=== PATIENT | female | born 1970 | race Caucasian/White ===

== ENCOUNTER → 2016-09-24 | Outpatient (CLI) | payer BC | LOC: M RAD 11:40 | PROVIDERS: ATTEND Physician Assistant | DX: N92.0 Excessive and frequent menstruation with regular cycle (principal) ==

== ENCOUNTER 2017-01-17 08:13 | Day surgery (SDC) | payer BC ==
[~2017-01-17] VITALS: Ht 160 cm; Wt 79.4 kg
[~2017-01-17 08:13] MED LIST: IRON50TA PO; METO12TA PO; MULT1CHW39 PO
[2017-01-17] MEDS ORDERED: LR 1,000 ML IV SCH ×3 (08:30→14:00)
[2017-01-17] MEDS ORDERED: LR 1,000 ML IV ONE (08:30)
[2017-01-17] MEDS ORDERED: LIDOCAINE 2% INJ 100 MG/5 ML SDV (FOR ANES.) As Ordered ONE (08:37)
[2017-01-17] MEDS ORDERED: PROPOFOL 200 MG/20 ML VIAL As Ordered ONE (08:37)
[2017-01-17] MEDS ORDERED: ROCURONIUM BROMIDE 50 MG/5 ML VIAL As Ordered ONE ×2 (08:37→11:58)
[2017-01-17] MEDS ORDERED: MIDAZOLAM INJ 2 MG/2 ML VIAL (J2250) As Ordered ONE (08:37)
[2017-01-17] MEDS ORDERED: fentaNYL 100 MCG/2 ML INJECTION (J3010) As Ordered ONE ×2 (08:37→11:57)
[2017-01-17] MEDS ORDERED: ONDANSETRON 4MG/2ML VIAL (J2405) As Ordered ONE ×2 (08:37→13:25)
[2017-01-17 08:57] LABS: CONTROL LINE UCG INT CTR LINE PRESENT
[2017-01-17 09:01] LABS: MEAN CORPUSCULAR HEMOGLOBIN 29.8 pg (27.0-33.0); MEAN CORPUSCULAR HGB CONC 33.9 g/dl (32.0-36.5); MEAN CORPUSCULAR VOLUME 87.9 fl (80.0-96.0); WHITE BLOOD COUNT 5.6 K/mm3 (4.0-10.0)
[2017-01-17] MEDS ORDERED: OXYC1TAB23 PO (10:59)
[2017-01-17] MEDS ORDERED: METHYLENE BLUE 0.5% (5MG/ML) 10 ML AMP (PROVAYBLUE)(Q9968 PER 1MG) As Ordered ONE (11:07)
[2017-01-17] MEDS ORDERED: BUPIVACAINE HCL 0.25% 30 ML VIAL As Ordered ONE (11:08)
[2017-01-17] MEDS ORDERED: dexameTHASONE 4 MG/ML 1ML VIAL (J1100) As Ordered ONE (11:09)
[2017-01-17] MEDS ORDERED: SCOPOLAMINE 1.5 MG TRANSDERMAL As Ordered ONE (11:24)
[2017-01-17] MEDS ORDERED: SCOPOLAMINE 1.5 MG TRANSDERMAL TOP ONE (12:00)
[2017-01-17] MEDS ORDERED: ePHEDrine SULFATE 25 MG/5 ML(5MG/ML) SYRINGE As Ordered ONE (13:03)
[2017-01-17] MEDS ORDERED: HYDROmorphone HCL 2 MG/ML 1ML VIAL (J1170) As Ordered ONE (13:24)
[2017-01-17] MEDS ORDERED: NEOSTIGMINE 1MG/ML 5 ML SYRINGE (J2710) As Ordered ONE (13:29)
[2017-01-17] MEDS ORDERED: GLYCOPYRROLATE INJ 0.2 MG/ML 2 ML VIAL As Ordered ONE (13:29)
[2017-01-17] MEDS ORDERED: METOCLOPRAMIDE INJ 10MG/2ML VIAL (J2765) As Ordered ONE (13:51)
[2017-01-17] MEDS ORDERED: diphenhydrAMINE INJ 50MG/ML VIAL (J1200) IV PRN (14:00)
[2017-01-17] MEDS ORDERED: fentaNYL 100 MCG/2 ML INJECTION (J3010) IV PRN (14:00)
[2017-01-17] MEDS ORDERED: HYDROmorphone HCL 1 MG/ML SYRINGE (J1170) IV PRN (14:00)
[2017-01-17] MEDS ORDERED: ONDANSETRON 4MG/2ML VIAL (J2405) IV PRN ×2 (14:00)
[2017-01-17] MEDS ORDERED: METOCLOPRAMIDE INJ 10MG/2ML VIAL (J2765) IV PRN (14:00)
[2017-01-17] MEDS ORDERED: PROMETHAZINE INJ 25 MG/ML VIAL (J2550) IV PRN (14:00)
[2017-01-17] MEDS ORDERED: MORPHINE 4 MG/ML 1ML SYRINGE IV PRN (14:00)
[2017-01-17] MEDS ORDERED: PERCOCET 5MG/325MG TAB PO PRN ×3 (14:00)
[2017-01-17] MEDS ORDERED: KETOROLAC 30 MG/ML VIAL (J1885) IV PRN (14:15)
[2017-01-17 14:40] VITALS: BP 108/55
[2017-01-17 15:15] VITALS: BP 115/65
[2017-01-17 16:00] VITALS: BP 128/82
[2017-01-17 17:00] VITALS: BP 128/74
[2017-01-17 18:00] VITALS: BP_SYST 141; BP_SYST 171; BP_DIAS 84
[2017-01-17 19:00] VITALS: BP 132/75
[2017-01-17] MEDS ORDERED: DOCUSATE SODIUM 100 MG CAP PO SCH (21:00)
--- NOTE | 2017-01-17 21:43 | RO ---
DATE OF PROCEDURE: 01/17/2017 PREPROCEDURE DIAGNOSIS: Menorrhagia. POSTPROCEDURE DIAGNOSIS: Menorrhagia. PROCEDURE: Robotic-assisted laparoscopic hysterectomy, cystoscopy, excision of vulvar cyst and vulvar skin tag. SURGEON: Dr. Vega Peterson SERVICE VEHICLE OPERATOR: Anny Urias NP ANESTHESIA: General endotracheal. ESTIMATED BLOOD LOSS: 250 mL. FINDINGS: Mildly enlarged uterus. Normal fallopian tubes and ovaries. There was a 1 cm cyst in the inner right labia minora and a 5 mm skin tag on the right labia majora. DESCRIPTION OF PROCEDURE: The patient was taken to the operating room where general endotracheal anesthesia was induced. She was prepped and draped in a sterile fashion in the dorsal lithotomy position. A Escobar catheter was placed, a VCare uterine manipulator was placed. A periumbilical incision was made with a scalpel. A Veress needle was placed through this incision. A pneumoperitoneum was created. Veress needle was removed. An 11 mm trocar was placed through this incision using Visiport. Three 8 mm suprapubic ports were placed under direct visualization. Patient was placed in Trendelenburg position. The da Christian surgical robot was docked in the ports. Using monopolar Endo Luann and a PK dissector, the utero-ovarian ligaments, fallopian tube and round ligament complexes were coagulated and incised. The anterior and posterior leaves of the broad ligament were , a bladder flap was created. Uterine vessels were coagulated. A colpotomy was created using the monopolar Endo Luann and extended to the level of the VCare cup in the upper vagina. The specimen containing the uterus and cervix was removed. The vagina was closed with #1 V-Loc suture in a running fashion, the pelvis was irrigated. Cystoscopy was performed using a 70-degree cystoscope. The patient received methylene blue dye intravenously. Bilateral ureteral jets were identified. There was no evidence of injury to the bladder. The Escobar catheter was replaced. Anny Urias NP, assisted with the entire surgery from beginning to end. She assisted with insertion of the ports and positioning of the patient. She was integral with manipulation of the uterus throughout the entire procedure. She assisted in removal of the specimen as well as closure of the ports. Attention was turned to the vagina. A vaginal cyst was excised with a scalpel and closed with interrupted suture of #4-0 Vicryl. The skin tag was grasped with pickups and excised with a scalpel and closed with a single interrupted suture of #4-0 Vicryl. Sponge, needle and instrument counts were correct.
== END 2017-01-17 20:30 | disposition home or self-care (01) ==
LOC: M SDC 08:13 → M PED 14:08 → M SDC 20:30
PROVIDERS: ATTEND Specialist
DX: N92.0 Excessive and frequent menstruation with regular cycle (principal); D25.9 Leiomyoma of uterus, unspecified; N90.7 Vulvar cyst; N90.89 Other specified noninflammatory disorders of vulva and perineum; D64.9 Anemia, unspecified; I10 Essential (primary) hypertension; F41.9 Anxiety disorder, unspecified; F32.9 Major depressive disorder, single episode, unspecified
CPT/HCPCS: 36415; 57135; 58570; 84703; 85027; 88304; 88307; 96374; J0690; J1100; J1170; J2250; J2405; J2710; J2765; J3010; Q9968

== ENCOUNTER → 2018-03-20 | Outpatient (REF) ==
[2018-03-21 10:16] LABS: RUBEOLA IgG ANTIBODY 28.6 AU/mL (Immune >29.9)
== END ==
LOC: M LAB 09:39
DX: Z00.00 Encounter for general adult medical examination without abnormal findings (principal)

== ENCOUNTER → 2018-04-04 | Outpatient (CLI) | payer BC | LOC: M RAD 15:36 | DX: E04.1 Nontoxic single thyroid nodule (principal) | CPT/HCPCS: 76536 ==

== ENCOUNTER → 2018-04-21 | Outpatient (CLI) | payer BC ==
[2018-04-21 08:39] LABS: THYROXINE (T4) 8.9 UG/DL (4.5-12.0)
[2018-04-21 08:39] LABS: FREE T3 2.9 PG/ML (2.2-4.0)
[2018-04-21 09:00] LABS: THYROGLOBULIN ANTIBODY 23.5 U/ML (<60.0)
== END ==
LOC: M LAB 06:53
DX: R22.1 Localized swelling, mass and lump, neck (principal)
CPT/HCPCS: 84443

== ENCOUNTER 2020-02-19 11:13 | Emergency (ER) | payer BC, OTHER ==
[~2020-02-19] VITALS: Ht 160 cm; Wt 83.0 kg
[~2020-02-19 11:13] MED LIST changes: -METO12TA PO; +METO1TAB87 PO; -MULT1CHW39 PO; +MULT200T7 PO; +OXYC1TAB23 PO
[2020-02-19] MEDS ORDERED: METR0.7534 (11:22)
[2020-02-19] MEDS ORDERED: BETA115CR (11:22)
[2020-02-19] MEDS ORDERED: DOXY100T (11:22)
[2020-02-19] MEDS ORDERED: methylPREDNISolone 125MG 2ML VIAL IV ONE (12:15)
[2020-02-19 12:39] LABS: APPEARANCE, URINE CLEAR (CLEAR); BACTERIA, URINE AUTO NEGATIVE (NEGATIVE); BILIRUBIN, URINE AUTO NEGATIVE (NEGATIVE); BLOOD, URINE BLOOD NEGATIVE (NEGATIVE); COLOR, URINE STRAW (YELLOW); GLUCOSE, URINE (UA) AUTO NEGATIVE (NEGATIVE); KETONE, URINE AUTO NEGATIVE (NEGATIVE); LEUKOCYTE ESTERASE, URINE AUTO NEGATIVE (NEGATIVE); NITRITE, URINE AUTO NEGATIVE (NEGATIVE); PROTEIN, URINE AUTO NEGATIVE (NEGATIVE); RBC, URINE AUTO 1 /HPF (0-3); SPECIFIC GRAVITY URINE AUTO 1.003 (1.002-1.035); SQUAMOUS EPITHELIAL CELL UR AU 0 /HPF (0-6); UROBILINOGEN, URINE AUTO 0.2 mg/dL (0.0-2.0); WBC, URINE AUTO 1 /HPF (0-3)
[2020-02-19 12:43] LABS: BASO % 0.4 % (0.0-1.0); EOS # 0.1 10^3/uL (0.0-0.5); EOS % 0.6 % (0.0-3.0); HEMATOCRIT 47.7 % (36.0-47.0); HEMOGLOBIN 15.8 g/dl (12.0-15.5); LYMPH # 2.5 10^3/uL (1.5-5.0); MEAN CORPUSCULAR HEMOGLOBIN 29.1 pg (27.0-33.0); MEAN CORPUSCULAR HGB CONC 33.1 g/dl (32.0-36.5); MEAN CORPUSCULAR VOLUME 87.8 fl (80.0-96.0); MONO # 0.7 10^3/uL (0.0-0.8); NEUTROPHILS # 4.5 10^3/uL (1.5-8.5); NEUTROPHILS % 57.7 % (36.0-66.0); PLATELET COUNT, AUTOMATED 262 10^3/uL (150-450); RED BLOOD COUNT 5.43 10^6/uL (4.00-5.40); WHITE BLOOD COUNT 7.8 10^3/uL (4.0-10.0)
[2020-02-19 13:10] LABS: BLOOD UREA NITROGEN 7 MG/DL (7-18); C REACTIVE PROTEIN QUANTITATIV 0.38 MG/DL (0.00-0.30); CARBON DIOXIDE LEVEL 28 MEQ/L (21-32); CHLORIDE LEVEL 105 MEQ/L (98-107); CREATININE FOR GFR 0.59 MG/DL (0.55-1.30); GLOMERULAR FILTRATION RATE > 60.0 (>58); GLUCOSE, FASTING 88 MG/DL (70-100); POTASSIUM SERUM 3.3 MEQ/L (3.5-5.1); SODIUM LEVEL 138 MEQ/L (136-145)
[2020-02-19 13:31] LABS: ERYTHROCYTE SEDIMENTATION RATE 2 mm/hr (0-20)
[2020-02-19] MEDS ORDERED: PRED20TA PO (13:45)
[2020-02-19] MEDS ORDERED: POTASSIUM CHLORIDE 10 MEQ SR TABLET PO ONE (13:45)
[2020-02-19 13:52] VITALS: BP 169/98
== END 2020-02-19 13:55 | disposition home or self-care (01) ==
LOC: M ED 11:13
DX: L29.9 Pruritus, unspecified (principal); E87.6 Hypokalemia; I10 Essential (primary) hypertension; F33.9 Major depressive disorder, recurrent, unspecified; F41.9 Anxiety disorder, unspecified; Z79.899 Other long term (current) drug therapy
CPT/HCPCS: 80048; 81001; 85025; 85652; 86140; 87880; 96374; 99284; J2930

== ENCOUNTER → 2020-03-10 | Outpatient (CLI) | payer BC ==
[~2020-03-10] MED LIST changes: +BETA115CR; +DOXY100T; +METR0.7534; +PRED20TA PO
[2020-03-11 20:07] LABS: ANA (HEP2) Negative (.)
== END ==
LOC: M PLALAB 09:35
PROVIDERS: ATTEND Physician Assistant
DX: L71.9 Rosacea, unspecified (principal)

== ENCOUNTER → 2020-04-08 | Outpatient (REF) | payer BC | LOC: M LAB REF 08:23 | PROVIDERS: ATTEND Physician Assistant | DX: D03.62 Melanoma in situ of left upper limb, including shoulder (principal) ==

== ENCOUNTER → 2020-05-06 | Outpatient (REF) | payer BC | LOC: M LAB REF 19:19 | PROVIDERS: ATTEND Dermatology | DX: C43.62 Malignant melanoma of left upper limb, including shoulder (principal) ==

== ENCOUNTER → 2020-05-20 | Outpatient (REF) | payer BC | LOC: M LAB REF 07:37 | PROVIDERS: ATTEND Physician Assistant | DX: L57.0 Actinic keratosis (principal) ==

== ENCOUNTER → 2020-07-21 | Outpatient (CLI) | payer BC | LOC: M LABSMTC 11:03 | PROVIDERS: ATTEND Pediatrics | DX: Z20.828 Contact with and (suspected) exposure to other viral communicable diseases (principal) ==

== ENCOUNTER → 2020-08-04 | Outpatient (CLI) | payer SELFPAY | LOC: M LABSMTC 11:55 | PROVIDERS: ATTEND Pediatrics | DX: Z20.828 Contact with and (suspected) exposure to other viral communicable diseases (principal) ==

== ENCOUNTER → 2020-08-07 | Outpatient (CLI) | payer BC ==
--- NOTE | 2020-08-07 11:32 | REP ---
INDICATION: PAIN IN LEFT TOE COMPARISON: None. TECHNIQUE: AP, lateral, bilateral oblique views left 1st toe. FINDINGS: Mild degenerative changes include periarticular sclerosis with very subtle marginal spurring and joint space narrowing at the metatarsophalangeal joint. No obvious acute fracture or dislocation. 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 No definite acute fracture or dislocation. <Electronically signed by Raghav Jackson > 08/07/20 0937
== END ==
LOC: M ADAMS 10:18
PROVIDERS: ATTEND Physician Assistant
DX: M25.774 Osteophyte, right foot (principal); M19.072 Primary osteoarthritis, left ankle and foot; M79.675 Pain in left toe(s)

== ENCOUNTER → 2021-01-22 | Outpatient (CLI) | payer BC ==
[~2021-01-22] MED LIST changes: +ISOVUE-300 61% 50ML VIAL As Ordered ONE; +LIDOCAINE 1% MDV 20ML VIAL As Ordered ONE; +methylPREDNISolone SUSP 40MG/ML 1ML VIAL (DEPO MEDROL) As Ordered ONE
--- NOTE | 2021-01-22 17:22 | REP ---
INDICATION: NONDISP FX OF PROX PHALANX OF L GREAT TOE, 7THD. COMPARISON: None TECHNIQUE: The procedure was performed by BAKARI Bird, under the direct supervision of Dr. Julien. The benefits and risks of the procedure were explained to the patient, and an informed consent was obtained. Directly prior to the start of the procedure, a formal time-out was completed in the procedure room. The left 1st MTP joint space was localized using fluoroscopic guidance. The skin was prepped and draped in a sterile fashion. Approximately 0.5 mL of 1% Lidocaine 10 mg/ml was used as a local anesthetic. Using fluoroscopic guidance, a 25 gauge 3/4 needle was inserted and advanced into the left 1st MTP joint space. Approximately 0.5 mL of Isovue 300 was injected to verify placement. 0.75 mL of a solution containing 0.5 mL 1% lidocaine 10 mg/ml and 0.25 mL Depo-Medrol 40 milligrams/milliliter was injected into the joint space. The needle was removed and hemostasis was achieved. FINDINGS: The patient tolerated the procedure well and there were no immediate complications. IMPRESSION: 1. Fluoroscopic guided intra-articular left 1st MTP joint injection. 0.1 minutes of fluoroscopy time was utilized for this procedure. Some fluoroscopic images are performed with last image hold technology. These images require no additional radiation. <Electronically signed by Marixa Ye > 01/22/21 1512 <Electronically signed by Shar Julien > 01/22/21 [id number]
== END ==
LOC: M RADPRO 10:21
PROVIDERS: ATTEND Physician Assistant
DX: S92.415D Nondisplaced fracture of proximal phalanx of left great toe, subsequent encounter for fracture with routine healing (principal)
CPT/HCPCS: 20605; 77002; J1030; Q9967

== ENCOUNTER → 2021-05-14 | Outpatient (CLI) | payer BC ==
[~2021-05-14] MED LIST changes: -ISOVUE-300 61% 50ML VIAL As Ordered ONE; -LIDOCAINE 1% MDV 20ML VIAL As Ordered ONE; -methylPREDNISolone SUSP 40MG/ML 1ML VIAL (DEPO MEDROL) As Ordered ONE
--- NOTE | 2021-05-14 08:46 | REPMRS ---
Patient History The patient states she has not had a clinical breast exam in over a year. Patient has history of melanoma skin cancer at age 50. Family history of breast cancer at age 45 in sister, prostate cancer at age 50 or over in paternal grandfather. No Hormone Replacement Therapy Patient states no breast complaints today. Patient has signed MRS History Sheet. Digital Woman Screen Mammo: May 14, 2021 - Exam #: [id number] Bilateral CC and MLO view(s) were taken. Technologist: Ema Liao, Technologist No prior studies available for comparison. FINDINGS: There are scattered fibroglandular densities. The Volpara volumetric breast density category is: B. There is no evidence of dominant mass, architectural distortion, or grouped microcalcification typical of malignancy. 3-D tomosynthesis shows no additional findings. Assessment: BI-RADS/ACR category 1 mammogram. Negative Mammogram. Recommendation Routine screening mammogram of both breasts in 1 year (for women over age 40). This patient's [facility] Lifetime Breast Cancer RIsk is estimated at 14.9 %. This mammogram was interpreted with the aid of an FDA-approved computer-aided dectection system. Electronically Signed By: Wang Garces MD 05/14/21 0839
== END ==
LOC: M WHC 06:57
PROVIDERS: ATTEND Family Medicine
DX: Z12.31 Encounter for screening mammogram for malignant neoplasm of breast (principal)

== ENCOUNTER → 2021-09-01 | Outpatient (REF) | payer BC ==
[2021-09-01 12:42] LABS: BASO % 0.5 % (0.0-1.0); EOS # 0.1 10^3/uL (0.0-0.5); EOS % 1.6 % (0.0-3.0); HEMATOCRIT 43.1 % (36.0-47.0); HEMOGLOBIN 14.1 g/dl (12.0-15.5); LYMPH # 1.8 10^3/uL (1.5-5.0); MEAN CORPUSCULAR HEMOGLOBIN 29.3 pg (27.0-33.0); MEAN CORPUSCULAR HGB CONC 32.7 g/dl (32.0-36.5); MEAN CORPUSCULAR VOLUME 89.4 fl (80.0-96.0); MONO # 0.7 10^3/uL (0.0-0.8); MONO % 11.4 % (2.0-8.0); NEUTROPHILS # 3.1 10^3/uL (1.5-8.5); NEUTROPHILS % 54.5 % (36.0-66.0); PLATELET COUNT, AUTOMATED 222 10^3/uL (150-450); RED BLOOD COUNT 4.82 10^6/uL (4.00-5.40); WHITE BLOOD COUNT 5.7 10^3/uL (4.0-10.0)
[2021-09-01 13:14] LABS: ALBUMIN 3.4 GM/DL (3.2-5.2); ALT/SGPT 21 U/L (12-78); BILIRUBIN,TOTAL 0.6 MG/DL (0.2-1.0); BLOOD UREA NITROGEN 11 MG/DL (7-18); CALCIUM LEVEL 8.7 MG/DL (8.5-10.1); CARBON DIOXIDE LEVEL 28 MEQ/L (21-32); CHLORIDE LEVEL 108 MEQ/L (98-107); CHOLESTEROL LEVEL 149 MG/DL (<200); CHOLESTEROL RISK RATIO 2.865 (<5); CREATININE FOR GFR 0.57 MG/DL (0.55-1.30); GLOMERULAR FILTRATION RATE > 60.0 (>58); GLUCOSE, FASTING 86 MG/DL (70-100); HDL CHOLESTEROL 52 MG/DL (>40); LDL CHOLESTEROL 82 MG/DL (<100); NON-HDL-C 97 MG/DL; POTASSIUM SERUM 4.5 MEQ/L (3.5-5.1); SODIUM LEVEL 141 MEQ/L (136-145); TOTAL PROTEIN 6.1 GM/DL (6.4-8.2); TRIGLYCERIDES LEVEL 74 MG/DL (<150)
== END ==
LOC: M SFHCADAM 07:18
PROVIDERS: ATTEND Physician Assistant Medical
DX: Z13.220 Encounter for screening for lipoid disorders (principal); Z13.0 Encounter for screening for diseases of the blood and blood-forming organs and certain disorders involving the immune mechanism; Z13.6 Encounter for screening for cardiovascular disorders; Z82.49 Family history of ischemic heart disease and other diseases of the circulatory system

== ENCOUNTER 2022-01-06 09:09 | Day surgery (SDC) | payer BC ==
[~2022-01-06] VITALS: Ht 160 cm; Wt 80.3 kg
[~2022-01-06 09:09] MED LIST changes: -DOXY100T; +DOXY100T PO; +IBUP200C25 PO; +LIDOCAINE 2% 100MG/5ML SDV (FOR ANES.) As Ordered ONE; +NS 1,000 ML IV ONE; +PROBCAP14 PO; +THERTAB19 PO; +ZYRTTAB8 PO; +ePHEDrine SULFATE 25 MG/5 ML(5MG/ML) SYRINGE As Ordered ONE; +propofoL 200 MG/20 ML VIAL As Ordered ONE
[2022-01-06] MEDS ORDERED: propofoL 200 MG/20 ML VIAL As Ordered ONE (10:07)
[2022-01-06 10:33] VITALS: BP 158/106
== END 2022-01-06 10:48 | disposition home or self-care (01) ==
LOC: M OPP 09:09
PROVIDERS: ATTEND Surgery
DX: Z12.11 Encounter for screening for malignant neoplasm of colon (principal); K57.30 Diverticulosis of large intestine without perforation or abscess without bleeding; K64.8 Other hemorrhoids

== ENCOUNTER → 2022-10-21 | Outpatient (CLI) | payer BC ==
[~2022-10-21] MED LIST changes: -LIDOCAINE 2% 100MG/5ML SDV (FOR ANES.) As Ordered ONE; -NS 1,000 ML IV ONE; -ePHEDrine SULFATE 25 MG/5 ML(5MG/ML) SYRINGE As Ordered ONE; -propofoL 200 MG/20 ML VIAL As Ordered ONE
== END ==
LOC: M WHC 07:10
PROVIDERS: ATTEND Physician Assistant Medical
DX: Z12.31 Encounter for screening mammogram for malignant neoplasm of breast (principal); Z80.3 Family history of malignant neoplasm of breast

== ENCOUNTER → 2023-02-01 | Outpatient (REF) | payer BC ==
[2023-02-01 17:32] LABS: HEMATOCRIT 38.2 % (36.0-47.0); HEMOGLOBIN 11.7 g/dl (12.0-15.5); MEAN CORPUSCULAR HEMOGLOBIN 24.8 pg (27.0-33.0); MEAN CORPUSCULAR HGB CONC 30.6 g/dl (32.0-36.5); MEAN CORPUSCULAR VOLUME 80.9 fl (80.0-96.0); PLATELET COUNT, AUTOMATED 248 10^3/uL (150-450); RED BLOOD COUNT 4.72 10^6/uL (4.00-5.40); WHITE BLOOD COUNT 5.3 10^3/uL (4.0-10.0)
[2023-02-01 18:03] LABS: FERRITIN 6.4 NG/ML (7.3-270.7)
[2023-02-01 18:04] LABS: FOLATE 22.8 NG/ML (>5.4)
[2023-02-01 18:05] LABS: PERCENT SATURATION 6.7 % (13.2-45.0)
== END ==
LOC: M SFHCADAM 11:49
PROVIDERS: ATTEND Physician Assistant Medical
DX: D64.9 Anemia, unspecified (principal)

== ENCOUNTER → 2023-05-04 | Outpatient (REF) | payer BC ==
[2023-05-04 13:51] LABS: BASO % 0.4 % (0.0-1.0); EOS # 0.2 10^3/uL (0.0-0.5); EOS % 3.3 % (0.0-3.0); HEMATOCRIT 45.3 % (36.0-47.0); HEMOGLOBIN 14.8 g/dl (12.0-15.5); LYMPH # 2.3 10^3/uL (1.5-5.0); LYMPH % 43.2 % (24.0-44.0); MEAN CORPUSCULAR HEMOGLOBIN 28.3 pg (27.0-33.0); MEAN CORPUSCULAR HGB CONC 32.7 g/dl (32.0-36.5); MEAN CORPUSCULAR VOLUME 86.6 fl (80.0-96.0); MONO # 0.6 10^3/uL (0.0-0.8); MONO % 10.7 % (2.0-8.0); NEUTROPHILS # 2.2 10^3/uL (1.5-8.5); NEUTROPHILS % 42.2 % (36.0-66.0); PLATELET COUNT, AUTOMATED 238 10^3/uL (150-450); RED BLOOD COUNT 5.23 10^6/uL (4.00-5.40); WHITE BLOOD COUNT 5.2 10^3/uL (4.0-10.0)
[2023-05-04 13:55] LABS: PERCENT SATURATION 34.6 % (13.2-45.0)
[2023-05-04 13:58] LABS: FERRITIN 14.2 NG/ML (7.3-270.7)
== END ==
LOC: M SFHCADAM 07:32
PROVIDERS: ATTEND Physician Assistant Medical
DX: Z00.00 Encounter for general adult medical examination without abnormal findings (principal); D50.8 Other iron deficiency anemias; Z85.820 Personal history of malignant melanoma of skin; Z13.220 Encounter for screening for lipoid disorders; Z13.0 Encounter for screening for diseases of the blood and blood-forming organs and certain disorders involving the immune mechanism

== ENCOUNTER → 2023-06-22 | Outpatient (REF) | payer BC | LOC: M SFHCDERM 18:07 → M SFHCWAGY 18:07 | PROVIDERS: ATTEND Physician Assistant | DX: L82.1 Other seborrheic keratosis (principal) ==

== ENCOUNTER → 2023-09-20 | Outpatient (REF) | payer BC ==
[2023-09-20 14:17] LABS: TOTAL IRON BINDING CAPACITY 287 UG/DL (250-425)
[2023-09-20 14:18] LABS: ALKALINE PHOSPHATASE 129 U/L (46-116); ALT/SGPT 22 U/L (7.0-40); AST/SGOT 20 U/L (<34); BILIRUBIN,TOTAL 0.9 MG/DL (0.3-1.2); BLOOD UREA NITROGEN 13 MG/DL (9-23); CALCIUM LEVEL 9.1 MG/DL (8.5-10.1); CARBON DIOXIDE LEVEL 29 MMOL/L (20-31); CHLORIDE LEVEL 105 MMOL/L (98-107); CHOLESTEROL LEVEL 197 MG/DL (<200); CHOLESTEROL RISK RATIO 3.24 (<5); CREATININE FOR GFR 0.55 MG/DL (0.55-1.30); FERRITIN 23.9 NG/ML (7.3-270.7); FREE T4 0.97 NG/DL (0.89-1.76); GLOMERULAR FILTRATION RATE > 60.0 (>51); GLUCOSE, FASTING 88 MG/DL (60-100); HDL CHOLESTEROL 60.7 MG/DL (>40); LDL CHOLESTEROL 113.7 MG/DL (<100); NON-HDL-C 136.3 MG/DL; POTASSIUM SERUM 4.1 MMOL/L (3.5-5.1); SODIUM LEVEL 141 MMOL/L (136-145); THYROID STIMULATING HORMONE 1.097 uIU/ML (0.55-4.78); TOTAL 25(OH) VITAMIN D 20.2 NG/ML (20.0-100.0); TOTAL PROTEIN 6.8 G/DL (5.7-8.2); TRIGLYCERIDES LEVEL 113 MG/DL (<150)
[2023-09-21 17:08] LABS: IRON (FE) 83 UG/DL (50-170); PERCENT SATURATION 28.9 % (13.2-45.0)
== END ==
LOC: M SFHCADAM 08:16
PROVIDERS: ATTEND Physician Assistant Medical
DX: Z00.00 Encounter for general adult medical examination without abnormal findings (principal); Z85.820 Personal history of malignant melanoma of skin; Z13.220 Encounter for screening for lipoid disorders; Z13.0 Encounter for screening for diseases of the blood and blood-forming organs and certain disorders involving the immune mechanism; D50.8 Other iron deficiency anemias

== ENCOUNTER 2023-09-26 11:08 | Emergency (ER) | payer BC ==
[~2023-09-26] VITALS: Ht 160 cm; Wt 83.3 kg
[2023-09-26] MEDS ORDERED: VITMTA PO (12:09)
[2023-09-26] MEDS ORDERED: BACI1TAB20 PO (12:09)
[2023-09-26 12:28] LABS: BASO % 0.3 % (0.0-1.0); EOS # 0.1 10^3/uL (0.0-0.5); EOS % 1.3 % (0.0-3.0); HEMATOCRIT 47.5 % (36.0-47.0); LYMPH # 1.8 10^3/uL (1.5-5.0); LYMPH % 29.6 % (24.0-44.0); MEAN CORPUSCULAR HEMOGLOBIN 29.4 pg (27.0-33.0); MEAN CORPUSCULAR HGB CONC 33.7 g/dl (32.0-36.5); MEAN CORPUSCULAR VOLUME 87.3 fl (80.0-96.0); MONO # 0.5 10^3/uL (0.0-0.8); MONO % 8.6 % (2.0-8.0); NEUTROPHILS # 3.7 10^3/uL (1.5-8.5); NEUTROPHILS % 59.5 % (36.0-66.0); PLATELET COUNT, AUTOMATED 225 10^3/uL (150-450); RED BLOOD COUNT 5.44 10^6/uL (4.00-5.40); WHITE BLOOD COUNT 6.2 10^3/uL (4.0-10.0)
[2023-09-26 12:39] LABS: INR 1.05; PROTHROMBIN TIME 13.4 SECONDS (12.5-14.5)
[2023-09-26 12:43] LABS: LIPASE 28 U/L (12-53)
[2023-09-26 12:44] LABS: CK-MB VALUE MASS < 1.0 NG/ML (<3.6)
[2023-09-26 12:45] LABS: ALBUMIN 4.4 G/DL (3.2-5.2); ALKALINE PHOSPHATASE 135 U/L (46-116); ALT/SGPT 22 U/L (7.0-40); AST/SGOT 18 U/L (<34); BILIRUBIN,DIRECT 0.3 MG/DL (<0.4); BLOOD UREA NITROGEN 14 MG/DL (9-23); CARBON DIOXIDE LEVEL 28 MMOL/L (20-31); CHLORIDE LEVEL 107 MMOL/L (98-107); CPK CREATINE PHOSPHOKINASE 100 U/L (34-145); CREATININE FOR GFR 0.52 MG/DL (0.55-1.30); GLOMERULAR FILTRATION RATE > 60.0 (>51); GLUCOSE, FASTING 94 MG/DL (60-100); POTASSIUM SERUM 3.5 MMOL/L (3.5-5.1); SODIUM LEVEL 142 MMOL/L (136-145); TOTAL PROTEIN 7.4 G/DL (5.7-8.2)
[2023-09-26 13:22] LABS: BASO % 0.5 % (0.0-1.0); EOS # 0.1 10^3/uL (0.0-0.5); HEMATOCRIT 44.8 % (36.0-47.0); HEMOGLOBIN 15.3 g/dl (12.0-15.5); LYMPH # 1.6 10^3/uL (1.5-5.0); LYMPH % 26.9 % (24.0-44.0); MEAN CORPUSCULAR HEMOGLOBIN 29.7 pg (27.0-33.0); MEAN CORPUSCULAR HGB CONC 34.2 g/dl (32.0-36.5); MEAN CORPUSCULAR VOLUME 86.8 fl (80.0-96.0); MONO # 0.5 10^3/uL (0.0-0.8); MONO % 8.3 % (2.0-8.0); NEUTROPHILS # 3.6 10^3/uL (1.5-8.5); NEUTROPHILS % 62.4 % (36.0-66.0); PLATELET COUNT, AUTOMATED 224 10^3/uL (150-450); RED BLOOD COUNT 5.16 10^6/uL (4.00-5.40); WHITE BLOOD COUNT 5.8 10^3/uL (4.0-10.0)
[2023-09-26 13:47] LABS: CK-MB VALUE MASS < 1.0 NG/ML (<3.6)
[2023-09-26 13:48] LABS: CPK CREATINE PHOSPHOKINASE 89 U/L (34-145); MB/CK RELATIVE INDEX 1.12 (< OR =4)
[2023-09-26 13:52] LABS: RSV AMPLIFICATION NEGATIVE (NEGATIVE)
[2023-09-26] MEDS ORDERED: ISOVUE-370 76% 100ML VIAL As Ordered ONE (14:44)
[2023-09-26 16:18] VITALS: BP 140/83; TEMP 98.1; O2SAT 97
== END 2023-09-26 16:28 | disposition home or self-care (01) ==
LOC: M ED 11:08
DX: R00.2 Palpitations (principal); I10 Essential (primary) hypertension; I44.4 Left anterior fascicular block; Z79.810 Long term (current) use of selective estrogen receptor modulators (SERMs); Z79.899 Other long term (current) drug therapy
CPT/HCPCS: 36415; 71045; 71275; 80048; 80076; 82550; 82553; 83690; 84484; 85025; 85610; 87631; 93005; 93041; 94760; 99285; Q9967

== ENCOUNTER 2024-01-09 17:21 | Emergency (ER) | payer BC ==
[~2024-01-09] VITALS: Ht 160 cm; Wt 83.7 kg
[~2024-01-09 17:21] MED LIST changes: +BACI1TAB20 PO; +VITMTA PO
[2024-01-09] MEDS ORDERED: VALS1TAB67 (17:29)
[2024-01-09 18:59] LABS: RSV AMPLIFICATION NEGATIVE (NEGATIVE)
[2024-01-09 21:09] LABS: BASO % 0.6 % (0.0-1.0); EOS # 0.1 10^3/uL (0.0-0.5); EOS % 1.3 % (0.0-3.0); HEMATOCRIT 42.7 % (36.0-47.0); HEMOGLOBIN 14.7 g/dl (12.0-15.5); LYMPH # 2.7 10^3/uL (1.5-5.0); LYMPH % 41.7 % (24.0-44.0); MEAN CORPUSCULAR HGB CONC 34.4 g/dl (32.0-36.5); MEAN CORPUSCULAR VOLUME 87.1 fl (80.0-96.0); MONO # 0.6 10^3/uL (0.0-0.8); MONO % 8.6 % (2.0-8.0); NEUTROPHILS % 47.5 % (36.0-66.0); PLATELET COUNT, AUTOMATED 220 10^3/uL (150-450); WHITE BLOOD COUNT 6.4 10^3/uL (4.0-10.0)
[2024-01-09 21:44] LABS: LIPASE 29 U/L (12-53)
[2024-01-09 21:46] LABS: ALBUMIN 3.8 G/DL (3.2-5.2); ALKALINE PHOSPHATASE 116 U/L (46-116); ALT/SGPT 21 U/L (7.0-40); AST/SGOT 23 U/L (<34); BILIRUBIN,DIRECT 0.3 MG/DL (<0.4); BILIRUBIN,TOTAL 1.2 MG/DL (0.3-1.2); BLOOD UREA NITROGEN 10 MG/DL (9-23); CALCIUM LEVEL 9.1 MG/DL (8.5-10.1); CARBON DIOXIDE LEVEL 23 MMOL/L (20-31); CHLORIDE LEVEL 105 MMOL/L (98-107); CREATININE FOR GFR 0.53 MG/DL (0.55-1.30); GLOMERULAR FILTRATION RATE > 60.0 (>51); GLUCOSE, FASTING 86 MG/DL (60-100); POTASSIUM SERUM 4.1 MMOL/L (3.5-5.1); SODIUM LEVEL 138 MMOL/L (136-145); TOTAL PROTEIN 6.7 G/DL (5.7-8.2)
[2024-01-09] MEDS ORDERED: ISOVUE-370 76% 100ML VIAL As Ordered ONE (21:51)
[2024-01-09] MEDS: metroNIDAZOLE (FLAGYL) 500MG TABLET PO ONE (23:04)
[2024-01-09] MEDS: CIPROFLOXACIN 500MG TABLET PO ONE (23:04)
[2024-01-09] MEDS ORDERED: METR-265 PO (23:32)
[2024-01-09] MEDS ORDERED: CIPR-249 PO (23:32)
[2024-01-09 23:38] VITALS: BP 153/82; TEMP 97.8; O2SAT 100
== END 2024-01-09 23:46 | disposition home or self-care (01) ==
LOC: M ED 17:21
DX: K57.30 Diverticulosis of large intestine without perforation or abscess without bleeding (principal); I10 Essential (primary) hypertension; Z79.2 Long term (current) use of antibiotics; Z79.899 Other long term (current) drug therapy
CPT/HCPCS: 36415; 74177; 80048; 80076; 81001; 83690; 85025; 87631; 99284; Q9967

== ENCOUNTER → 2024-04-18 | Outpatient (CLI) | payer BC ==
[~2024-04-18] MED LIST changes: +CIPR-249 PO; +METR-265 PO; -METR0.7534; +METR60GE3; +VALS1TAB67
== END ==
LOC: M ADAMS 14:24
PROVIDERS: ATTEND Physician Assistant Medical
DX: M79.672 Pain in left foot (principal)

== ENCOUNTER 2024-04-26 10:48 | Outpatient (RCR) | payer BC | END 2024-05-19 | LOC: M PT 10:48 | PROVIDERS: ATTEND Orthopaedic Surgery | DX: M76.60 Achilles tendinitis, unspecified leg (principal) ==

== ENCOUNTER → 2024-07-18 | Outpatient (CLI) | payer BC ==
[~2024-07-18] MED LIST changes: -MULT200T7 PO; +MULT200T9 PO
== END ==
LOC: M WHC 07:04
PROVIDERS: ATTEND Physician Assistant Medical
DX: Z12.31 Encounter for screening mammogram for malignant neoplasm of breast (principal); R92.323 Mammographic fibroglandular density, bilateral breasts

== ENCOUNTER → 2024-09-05 | Outpatient (CLI) | payer BC | LOC: M WHC 09:58 | PROVIDERS: ATTEND Physician Assistant | DX: R59.9 Enlarged lymph nodes, unspecified (principal) ==

== ENCOUNTER 2024-12-02 01:46 | Emergency (ER) | payer BC ==
[~2024-12-02] VITALS: Ht 160 cm; Wt 87.7 kg
[2024-12-02 02:23] LABS: BASO # 0.1 10^3/uL (0.0-0.2); BASO % 0.5 % (0.0-1.0); EOS # 0.1 10^3/uL (0.0-0.5); EOS % 0.6 % (0.0-3.0); HEMATOCRIT 44.5 % (36.0-47.0); HEMOGLOBIN 15.2 g/dl (12.0-15.5); KETONE, URINE AUTO RFX NEGATIVE (NEGATIVE); LEUKOCYTE ESTERASE UR AUTO RFX NEGATIVE (NEGATIVE); LYMPH # 1.6 10^3/uL (1.5-5.0); LYMPH % 14.8 % (24.0-44.0); MEAN CORPUSCULAR HEMOGLOBIN 29.4 pg (27.0-33.0); MEAN CORPUSCULAR HGB CONC 34.2 g/dl (32.0-36.5); MEAN CORPUSCULAR VOLUME 86.1 fl (80.0-96.0); MONO % 8.8 % (2.0-8.0); MUCUS, URINE RFX SMALL (NEGATIVE); NEUTROPHILS # 8.2 10^3/uL (1.5-8.5); NITRITE, URINE AUTO RFX NEGATIVE (NEGATIVE); PLATELET COUNT, AUTOMATED 233 10^3/uL (150-450); RBC, URINE AUTO RFX 0 /HPF (0-3); RED BLOOD COUNT 5.17 10^6/uL (4.00-5.40); SQUAM EPITHELIAL CELL UR AURFX 1 /HPF (0-6); WBC, URINE AUTO RFX 0 /HPF (0-3); WHITE BLOOD COUNT 10.9 10^3/uL (4.0-10.0)
[2024-12-02 02:51] LABS: LIPASE 25 U/L (12-53)
[2024-12-02 02:53] LABS: ALBUMIN 4.1 G/DL (3.2-5.2); ALKALINE PHOSPHATASE 103 U/L (35-104); ALT/SGPT 16 U/L (7.0-40); AST/SGOT 15 U/L (<34); BILIRUBIN,DIRECT 0.3 MG/DL (<0.4); BLOOD UREA NITROGEN 17 MG/DL (9-23); CALCIUM LEVEL 9.1 MG/DL (8.5-10.1); CARBON DIOXIDE LEVEL 25 MMOL/L (20-31); CHLORIDE LEVEL 107 MMOL/L (98-107); CREATININE FOR GFR 0.67 MG/DL (0.55-1.30); GLOMERULAR FILTRATION RATE > 60.0 (>51); GLUCOSE, FASTING 114 MG/DL (60-100); POTASSIUM SERUM 3.9 MMOL/L (3.5-5.1); SODIUM LEVEL 141 MMOL/L (136-145); TOTAL PROTEIN 7.1 G/DL (5.7-8.2)
[2024-12-02 05:40] LABS: PROCALCITONIN 0.04 ng/ml
[2024-12-02] MEDS ORDERED: ISOVUE-370 76% 100ML VIAL As Ordered ONE (05:59)
[2024-12-02] MEDS: NS (Normal Saline) 0.9% 1,000 ML IV ONE (06:13)
[2024-12-02] MEDS: ACETAMINOPHEN *IV* 1,000 MG in IV 1 EA IV ONE (07:48)
[2024-12-02] MEDS: NS (Normal Saline) 0.9% 1,000 ML IV SCH (07:49)
[2024-12-02] MEDS ORDERED: CIPR-249 PO (08:38)
[2024-12-02] MEDS ORDERED: METR-265 PO (08:38)
[2024-12-02 09:15] VITALS: BP 119/71; TEMP 97.4; O2SAT 95
[2024-12-02] MEDS: metroNIDAZOLE (FLAGYL) 500MG TABLET PO ONE (09:20)
[2024-12-02] MEDS: CIPROFLOXACIN 500MG TABLET PO ONE (09:20)
== END 2024-12-02 09:36 | disposition home or self-care (01) ==
LOC: M ED 01:46
DX: K57.32 Diverticulitis of large intestine without perforation or abscess without bleeding (principal); M51.35 Other intervertebral disc degeneration, thoracolumbar region; J98.11 Atelectasis; R16.0 Hepatomegaly, not elsewhere classified; I10 Essential (primary) hypertension; F10.10 Alcohol abuse, uncomplicated; Z79.2 Long term (current) use of antibiotics; Z79.899 Other long term (current) drug therapy
CPT/HCPCS: 36415; 74177; 80048; 80076; 81001; 83605; 83690; 84145; 85025; 96361; 96374; 99284; J0131; Q9967

== ENCOUNTER → 2024-12-14 | Outpatient (REF) | payer BC ==
[2024-12-14 13:58] LABS: BASO % 0.4 % (0.0-1.0); EOS # 0.1 10^3/uL (0.0-0.5); EOS % 2.8 % (0.0-3.0); LYMPH # 1.9 10^3/uL (1.5-5.0); LYMPH % 41.4 % (24.0-44.0); MEAN CORPUSCULAR HEMOGLOBIN 28.8 pg (27.0-33.0); MEAN CORPUSCULAR HGB CONC 31.9 g/dl (32.0-36.5); MEAN CORPUSCULAR VOLUME 90.2 fl (80.0-96.0); MONO # 0.5 10^3/uL (0.0-0.8); NEUTROPHILS # 2.1 10^3/uL (1.5-8.5); NEUTROPHILS % 45.2 % (36.0-66.0); PLATELET COUNT, AUTOMATED 232 10^3/uL (150-450); RED BLOOD COUNT 5.21 10^6/uL (4.00-5.40); WHITE BLOOD COUNT 4.7 10^3/uL (4.0-10.0)
[2024-12-14 14:30] LABS: ALBUMIN 3.9 G/DL (3.2-5.2); ALKALINE PHOSPHATASE 88 U/L (35-104); ALT/SGPT 39 U/L (7.0-40); AST/SGOT 28 U/L (<34); BILIRUBIN,TOTAL 0.6 MG/DL (0.3-1.2); BLOOD UREA NITROGEN 9 MG/DL (9-23); CALCIUM LEVEL 8.7 MG/DL (8.5-10.1); CARBON DIOXIDE LEVEL 28 MMOL/L (20-31); CHLORIDE LEVEL 105 MMOL/L (98-107); CHOLESTEROL LEVEL 155 MG/DL (<200); CHOLESTEROL RISK RATIO 2.91 (<5); CREATININE FOR GFR 0.61 MG/DL (0.55-1.30); FREE T4 1.28 NG/DL (0.89-1.76); GLOMERULAR FILTRATION RATE > 60.0 (>51); GLUCOSE, FASTING 82 MG/DL (60-100); HDL CHOLESTEROL 53.2 MG/DL (>40); LDL CHOLESTEROL 77.4 MG/DL (<100); NON-HDL-C 101.8 MG/DL; POTASSIUM SERUM 4.2 MMOL/L (3.5-5.1); SODIUM LEVEL 142 MMOL/L (136-145); THYROID STIMULATING HORMONE 1.433 uIU/ML (0.55-4.78); TOTAL 25(OH) VITAMIN D 24.3 NG/ML (20.0-100.0); TOTAL PROTEIN 6.7 G/DL (5.7-8.2); TRIGLYCERIDES LEVEL 122 MG/DL (<150)
== END ==
LOC: M SFHCADAM 07:49
PROVIDERS: ATTEND Physician Assistant Medical
DX: I10 Essential (primary) hypertension (principal); I49.3 Ventricular premature depolarization; K59.01 Slow transit constipation

== ENCOUNTER → 2024-12-20 | Outpatient (CLI) | payer BC ==
[~2024-12-20] MED LIST changes: +GASTROGRAFIN SOLUTION 30ML As Ordered ONE; +ISOVUE-370 76% 100ML VIAL As Ordered ONE
== END ==
LOC: M RAD 11:50
PROVIDERS: ATTEND Physician Assistant Medical
DX: R10.32 Left lower quadrant pain (principal); K59.00 Constipation, unspecified
CPT/HCPCS: 74177; Q9963; Q9967

== ENCOUNTER → 2025-01-28 | Outpatient (REF) | payer BC ==
[~2025-01-28] MED LIST changes: -GASTROGRAFIN SOLUTION 30ML As Ordered ONE; -ISOVUE-370 76% 100ML VIAL As Ordered ONE
== END ==
LOC: M SFHCDERM 17:39
PROVIDERS: ATTEND Physician Assistant
DX: D22.5 Melanocytic nevi of trunk (principal)

== ENCOUNTER → 2025-06-18 | Outpatient (REF) | payer BC ==
[2025-06-18 18:25] LABS: BASO # 0.0 10^3/uL (0.0-0.2); BASO % 0.4 % (0.0-1.0); EOS # 0.1 10^3/uL (0.0-0.5); EOS % 1.3 % (0.0-3.0); LYMPH # 2.0 10^3/uL (1.5-5.0); LYMPH % 37.6 % (24.0-44.0); MONO # 0.6 10^3/uL (0.0-0.8); MONO % 10.7 % (2.0-8.0); NEUTROPHILS # 2.6 10^3/uL (1.5-8.5); NEUTROPHILS % 49.8 % (36.0-66.0); PLATELET COUNT, AUTOMATED 257 10^3/uL (150-450)
[2025-06-18 18:27] LABS: ALT/SGPT 15 U/L (7.0-40); AST/SGOT 18 U/L (<34); CALCIUM LEVEL 8.9 MG/DL (8.5-10.1); CARBON DIOXIDE LEVEL 28 MMOL/L (20-31); CHLORIDE LEVEL 105 MMOL/L (98-107); CHOLESTEROL LEVEL 158 MG/DL (<200); CHOLESTEROL RISK RATIO 2.98 (<5); CREATININE FOR GFR 0.66 MG/DL (0.55-1.30); GLOMERULAR FILTRATION RATE > 90.0 (>51); LDL CHOLESTEROL 92.0 MG/DL (<100); NON-HDL-C 105.0 MG/DL; POTASSIUM SERUM 4.4 MMOL/L (3.5-5.1); SODIUM LEVEL 142 MMOL/L (136-145); TRIGLYCERIDES LEVEL 65 MG/DL (<150)
[2025-06-18 18:31] LABS: FREE T4 1.21 NG/DL (0.89-1.76); TOTAL 25(OH) VITAMIN D 32.2 NG/ML (20.0-100.0)
== END ==
LOC: M SFHCADAM 14:19
PROVIDERS: ATTEND Physician Assistant Medical
DX: I10 Essential (primary) hypertension (principal); I49.3 Ventricular premature depolarization; K59.01 Slow transit constipation; E55.9 Vitamin D deficiency, unspecified

== ENCOUNTER → 2025-06-19 | Outpatient (CLI) | payer BC ==
[~2025-06-19] MED LIST changes: +GASTROGRAFIN SOLUTION 30 ML As Ordered ONE; +ISOVUE-370 76% 100 ML VIAL As Ordered ONE
== END ==
LOC: M RAD 07:50
PROVIDERS: ATTEND Physician Assistant Medical
DX: R10.32 Left lower quadrant pain (principal); Z90.79 Acquired absence of other genital organ(s)
CPT/HCPCS: 74177; Q9963; Q9967